=== PATIENT | female | born 1950 | race Caucasian/White ===

== ENCOUNTER 2016-12-10 14:35 | Observation (INO) | payer OTHER, SELFPAY ==
[~2016-12-10] VITALS: Ht 160 cm; Wt 97.5 kg
--- NOTE | ~2016-12-10 | ECH ---
Transthoracic Echocardiography Report (TTE) Demographics Patient Name DEONTE KIM Date of Study 12/11/2016 Patient Number [id number] Visit Number [id number] Date of 1950 Room Number 422 Accession Number [id number] Gender Female Age 66 year(s) Referring Birdie [employer] Courtesy Clerk Cordelia Dunham [facility] Physician Marty Perea MD Physician Interpreting Marty Perea [employer] Machine Operator Physician MD Supervising Ordering Physician MD CICI Flor/SHANI Meier Nurse Stress [employer] Pow[employer] Mixer Conclusions Summary Technically fair exam. The estimated left ventricular ejection fraction is 60-65%. Mild to moderate concentric left ventricular hypertrophy. Diastolic assessment reveals Grade I diastolic dysfunction. Mild mitral regurgitation by color Doppler. The ascending aorta appears mildly dilated. The maximum diameter measures 3.8 cm. The aortic root appears mildly dilated. The maximum diameter measures 3.57 cm at the sinus of valsalva. Procedure Type of Study TTE procedure:Echo Complete SF. Procedure Date Date: 12/11/2016 Start: 10:21 AM Technical Quality: Fair due to body habitus. Indications:Syncope and Abnormal ECG. Additional Indications:prolonged QT Appropriate Use Criteria: 9 Height: 63 inches Weight: 216 pounds BSA: 2 m Rhythm: Within normal limits HR: 71 bpm BP: 158/85 mmHg M-Mode/2D Measurements LV Diastolic Dimension: 4.65 cm LV Systolic Dimension: 2.85 cm LV Septum Diastolic: 1.5 cm LV PW Diastolic: 1.52 cm AO Root Dimension: 2.8 cm Cardiac Output: 4.64 l/min LA Dimension: 4.03 cm Cardiac Index: 2.32 l/min*m RV Diastolic Dimension: 3.17 cm LA volume index: 31 ml/m LVOT: 2.25 cm LVOT VTI: 16.43 cm RV Base: 3.67 cm LV Stroke volume: 65.29 ml RV Mid: 3.1 cm LV Stroke volume index: 32.64 ml/m RV Length: 6.8 cm TDI-S': 14 cm/s Doppler Measurements AV Peak Velocity: 1.3 m/s MV Peak E-Wave: 0.86 m/s AV Peak Gradient: 6.76 mmHg MV Peak A-Wave: 1.28 m/s AV Mean Gradient: 3.85 mmHg MV E/A Ratio: 0.67 LVOT Peak Velocity: 0.92 m/s MV P1/2t: 63.8 msec AV Area (Continuity):3.01 cm MV Deceleration Time: 220 msec MV Area (PHT): 3.45 cm PV Peak Velocity: 1 m/s PV Peak Gradient: 3.99 mmHg RA Area: 13.08 cm Findings Left Ventricle The left ventricle is normal in size . Moderate concentric left ventricular hypertrophy. Diastolic assessment reveals Grade I diastolic dysfunction. Right Ventricle Normal right ventricle structure and function. Left Atrium Normal left atrial size. Right Atrium Normal right atrial size. Mitral Valve Mild mitral annular calcification. Mild mitral regurgitation by color Doppler. Aortic Valve The aortic valve is mildly sclerotic. Tricuspid Valve Normal tricuspid valve structure and function. Trivial tricuspid regurgitation by color Doppler. Pulmonic Valve The pulmonic valve is not well visualized. Pericardial Effusion No evidence of pericardial effusion. Miscellaneous The ascending aorta appears mildly dilated. The maximum diameter measures 3.8 cm. The aortic root appears mildly dilated. The maximum diameter measures 3.57 cm at the sinus of valsalva. Pleural Effusion No evidence of pleural effusion. Contractility Score LV regional wall motion:(0-Non visualized 1-Normal 2-Hypokinesis 3-Akinesis 4-Dyskinesis 5-Aneurysm) Signature
--- NOTE | 2016-12-12 13:16 | ER ---
ADMIT: 12/10/2016 RM/LOC: 422 [facility] MR#: [id number] [address] [address] DEONTE KIM [address] [place] [id number] Emergency Room Report SEX: F AGE: 66 : 1950 DATE: 12/10/2016 The patient is a 66-year-old female with past medical history of diabetes, hypertension, kidney disease, and anemia, who was brought to the ER with chief complaint of ground level fall. The patient states she was on the floor and she fell for unknown reason, and she does not know for how long she was on the floor and she did not know if she lost consciousness or not. The patient states recently, she fell many times and the frequency of ground level falls are getting more. The patient denies any chest pain or shortness of breath. The patient states after the incident, she did not walk because ambulance got there and took her to the hospital. On physical examination, the patient had stable vitals, in no obvious distress. Except for some abrasions and erythema on the bridge of the nose and forehead, which per patient was from the previous fall, there are no other signs of trauma. There is no midline tenderness in spine and there are no step-offs. There are no other signs of trauma in the skull and there are no raccoon eyes or hemotympanum or Parada sign. There is no depressed bone fracture. Pupils are 3 mm, reactive to light bilaterally. Neck is soft. Trachea is midline. Bilateral equal breath sounds. Normal S1, S2 without any murmurs or extra sounds. Abdomen is soft. Mucous membranes are slightly dry. The patient is on 120 mg of Lasix 3 times day. Motor and sensory exam is grossly normal. Cerebellar test is moderately slow bilaterally. Cranial nerves are grossly normal. CT of the head did not show any acute bleed or acute changes. The patient was alert and oriented to person, place, and time but was very fatigued and tired. The patient can move all extremities. Further followups x-ray was done, which was noncontributory. White BC was 10.1, with hemoglobin of 11.7, and platelet of 238,000. Sodium was 133 with potassium of 3.9, and glucose of 91. Creatinine was 1.4. CK was elevated to 839. UA was negative. The patient received IV fluids 1 L in the ER. Cardiac enzymes are negative. D-dimer is mildly elevated to 0.66, and EKG showed sinus rhythm with prolonged QT of 590s. The patient had magnesium of 1.5 and received 2 g of magnesium phosphate in the ER. Medicine was consulted and the patient was admitted for syncope, prolonged QT syndrome, ground-level fall, hypoglycemia, rhabdomyolysis development. Shiraz Oconnor MD/ derrek JOB #: [id number] CC: Tom Packer MD, Attending Physician Tom Packer MD, Family Physician
--- NOTE | 2016-12-13 11:04 | HP ---
ADMIT: 12/10/2016 RM/LOC: 422 [facility] MR#: [id number] 2620 [facility] [address] [place] [phone] DEONTE KIM [address] [place] [address] History and Physical SEX: F AGE: 66 : 1950 DATE OF SERVICE: CHIEF COMPLAINT: Recent increased history of falls and syncope. HISTORY OF PRESENT ILLNESS: The patient is unsure why she fell this afternoon. She just states that she lost her bearings and fell to the ground. She is unsure if she lost consciousness or not, but she does think she laid on the floor for at least 20 to 30 minutes until her came home. She did not have any strength to get up off the floor. The patient mentions she fell earlier this week as well, but she is normally able to get back up. She says that for the past year, she feels that she has been falling more often. She cannot really pinpoint any specific symptoms or problems that she is noticing when these episodes occur. She does mention she has had an increasing cough for the past year, but does not know if that is related or not. She mentions that recently her blood sugars have been more out of whack, some up and down. Most recently, her blood sugar was low as 66 a few days ago, but does admit to low blood sugars today. Again, she is not sure if she is feeling dizzy, but she has not had chest pain or palpitations at that time. She denies any tunnel vision or vision changes. She denies any medication changes. She does mention that over the last week, she has been taking amoxicillin for UTI. She says she was seen before, but there are no records in our clinic EMR of this. She also feels lightheaded at times when she stands up quickly, but has not really noticed it specifically when sitting up. She does have occasional chest pain, shortness of breath, but not sure if that is related to these syncopal events. Currently, she does not have any chest pain or shortness of breath. It is easy for her to breathe, although she is on O2 supplement. While in the ER, workup showed a normal glucose of 119. Head CT was normal. She has a slight elevation of white blood cell count at 10.1, and a slight decrease in her hemoglobin at 11.4, PT/INR was in normal range. EKG did show prolonged QT intervals. BMP showed low sodium, low potassium, and slightly elevated creatinine, low albumin and also a low mag at 1.5. CK was elevated at 839, troponin was normal at 0.024. PAST MEDICAL HISTORY: Significant for diabetes, insulin dependent; dysmetabolic syndrome; hypertension; hyperlipidemia; obesity. ALLERGIES: INCLUDE BIAXIN, CEFDINIR, CODEINE, DETROL, NAPROSYN, NEURONTIN, NORVASC, WELL REGLAN AND TYLENOL WITH CODEINE. MEDICATIONS: See medication list. PAST SURGICAL HISTORY: Positive for C-sections. SOCIAL HISTORY: She does not drink, smoke, or use drugs. She is . She is unemployed and has disability because of chronic low back pain and slipped disks. REVIEW OF SYSTEMS: GENERAL: She feels kind of just fatigued, just not right, sick. ADMIT: 12/10/2016 RM/LOC: 422 [facility] MR#: [id number] [address] [address] DEONTE KIM [address] [place] [phone] History and Physical SEX: F AGE: 66 : 1950 HEENT: Denies any vision changes. Denies headaches. She has had some nasal congestion. No sore throat. No ear pain. HEART: Again, she has occasional chest pain and shortness of breath, but she has not really noticed it with these events and then she has not ever noticed any palpitations or change in heart rate. LUNGS: Again, she has had this cough for the past year, but is able to breathe normally. GI: She is constipated, maybe going to the bathroom every couple of days. This does sometimes cause her to wake up in the middle of the night with nausea and vomiting. She has occasional lower abdominal pain, but for the most part, no pain at all. EXTREMITIES: Again, she has this low back pain, but she has also noticed increased swelling in her lower extremities as well. NEURO: Positive for these syncopes and falls. Negative for any seizure-like activity and negative for any like abnormal or unilateral weakness. PHYSICAL EXAMINATION: VITAL SIGNS: Temperature is 98.9, heart rate of 72, respirations of 14, blood pressure is 162/72, 98% on SpO2 nasal cannula. GENERAL: She is in no acute distress. Alert and oriented x3; however, she does take some time to kind of respond in between questions. HEENT: She has normocephalic head. Does have some abrasions from previous falls. Also, has a scar and it is from previous fall this September. Extraocular muscles are intact. Moist mucous membranes. HEART: Regular rate and rhythm. No murmur. LUNGS: Clear to auscultation bilaterally. GI: Soft, obese. There is some distention and some mild low abdominal pain with palpation. Positive bowel sounds with stool as well. EXTREMITIES: Trace edema bilaterally. No mismatch in size between legs and no pain, no redness. ASSESSMENT AND PLAN: This is a 66-year-old female, presents with syncope: 1. Syncope. 2. Hypomagnesia. 3. Hypokalemia. 4. Prolonged QT interval. 5. Elevated CK 86. 6. Constipation. 7. Diabetes, type 2. 8. Hypertension. 9. Metabolic syndrome. 10.Hyperlipidemia. ADMIT: 12/10/2016 RM/LOC: 422 [facility] MR#: [id number] [address] [address] DEONTE KIM [address] [place] [phone] History and Physical SEX: F AGE: 66 : 1950 The ER gave the patient some IV fluids as well as 2 g of magnesium in the ER. We will trend the patient's cardiac enzymes and we will also replace her potassium as well as trending electrolytes. We will give the patient some medications to help her have a bowel movement as well. We will get EKG in the morning. We can consult Cardiology in the morning as well. Diet will be diabetic. Activity is as tolerated. We will go ahead and check glucose before meals and at bedtime. We will check her thyroid tonight. We will get an echo in the morning. The patient did have an elevated D-dimer in the ER, so this is nonconclusive to rule out DVT or PE, so we will get Dopplers of her bilateral extremities tonight as well. We will repeat a chest x-ray in the morning. We will get orthostatic blood pressures, and we will also get a carotid artery ultrasounds bilaterally in the morning as well. Renea Flor MD Resident / Milad Hayden MD / derrek JOB #: [id number] CC: Tom Packer, Attending Physician Tom Packer, Family Physician
[2016-12-15] MEDS ORDERED: LIBRAX CAPSULE1 EACH PO (12:39)
[2016-12-15] MEDS ORDERED: CARVEDILOL25 MG PO (12:39)
[2016-12-15] MEDS ORDERED: PROTONIX40 MG PO (12:39)
[2016-12-15] MEDS ORDERED: LASIX DPS80 MG PO (12:40)
[2016-12-15] MEDS ORDERED: KLOR-CON M2020 ME1 PO (12:40)
[2016-12-15] MEDS ORDERED: CATAPRES0.1 MG PO (12:40)
[2016-12-15] MEDS ORDERED: ULTRAM DPS50 MG PO (12:41)
[2016-12-15] MEDS ORDERED: BENZONATATE200 MG PO (12:41)
[2016-12-15] MEDS ORDERED: OXYBUTYNIN CHLOR5 MG PO (12:41)
[2016-12-15] MEDS ORDERED: CRESTOR40 MG PO (12:41)
[2016-12-15] MEDS ORDERED: WELCHOL625 MG PO (12:41)
[2016-12-15] MEDS ORDERED: LANTUS100 UNITS/ SQ (12:42)
[2016-12-15] MEDS ORDERED: TYLENOL DPS325 MG PO (12:44)
[2016-12-15] MEDS ORDERED: HUMALOG100 UNIT/1 SQ (12:44)
[2016-12-15] MEDS ORDERED: LEVAQUIN DPS500 MG PO (12:44)
[2016-12-15] MEDS ORDERED: COZAAR100 MG PO (12:45)
[2016-12-15] MEDS ORDERED: NOVOLOG100 UNIT/2 SQ (12:45)
[2016-12-15] MEDS ORDERED: COLACE-DPS100 MG PO (12:45)
[2016-12-15] MEDS ORDERED: TEARS NATURAL D15 ML OU (12:45)
[2016-12-15] MEDS ORDERED: MAALOX DPS30 ML PO (12:46)
[2016-12-15] MEDS ORDERED: BIOTENE237 ML PO (12:46)
--- NOTE | 2016-12-20 09:46 | CO ---
ADMIT: 12/10/2016 RM/LOC: 422 [facility] MR#: [id number] [address] [address] DEONTE KIM [address] [place] [address] Consultation SEX: F AGE: 66 : 1950 DATE OF CONSULTATION: 12/13/2016 ATTENDING PHYSICIAN: Tom Packer CONSULTING PHYSICIAN: oY Sutherland MD REASON FOR CONSULTATION: Chronic kidney disease stage 3 and hypertension. HISTORY OF PRESENT ILLNESS: The patient is a 66-year-old female, who has a history of chronic kidney disease stage 3 with a baseline creatinine of 1.4 to 1.6. She presented to the hospital after recurrent falls. She reports that she has been falling frequently at home. She notes that she has spinal stenosis and has weakness in her legs as a consequence. She thinks she loses balance on multiple occasions and has these falls. She denies any loss of consciousness or any dizziness or lightheadedness prior to the falls. Denies any head injury. She checks her blood pressure at home on a regular basis and reports that her blood pressure is generally well controlled. There has been a question about her furosemide dose at home and although we had previously discussed getting her down to 80 mg once a day, she reports she has been taking furosemide 80 mg twice a day. She otherwise denies any urinary complaints. She was recently noted to be hyponatremic as an outpatient. We had instructed her to restrict her fluid intake. Her sodium when she came in was close to normal. At this time, she feels at her baseline and has no complaints. REVIEW OF SYSTEMS: A complete review of systems is negative in detail except as mentioned in history of present illness above. PAST MEDICAL HISTORY: 1. Hypertension. 2. Diabetes mellitus. 3. Metabolic syndrome. 4. Obesity. 5. Dyslipidemia. ALLERGIES: BIAXIN. MEDICATIONS: Reviewed in the chart. It appears her losartan has been held. She is written for Lasix 80 mg once a day at this time. SOCIAL HISTORY: She lives with her . No ongoing tobacco, alcohol, or recreational drug use. FAMILY HISTORY: Brother had chronic kidney disease that required dialysis. Sister has chronic kidney disease too. Reportedly, their chronic kidney disease is secondary to diabetes. PHYSICAL EXAMINATION: VITAL SIGNS: Temperature 97.7 Fahrenheit, pulse 68, blood pressure 183/84, and saturating 97% on room air. ADMIT: 12/10/2016 RM/LOC: 422 [facility] MR#: [id number] [address] [address] DEONTE KIM [address] [place] [address] Consultation SEX: F AGE: 66 : 1950 GENERAL: She is comfortable on recliner. HEENT: Head is nontraumatic and normocephalic. Extraocular movements are intact. No conjunctival pallor. Oral mucosa is moist. NECK: Supple. No JVD. CHEST: Clear to auscultation. CVS: Regular rhythm. S1 and S2. No rubs, murmurs, or gallops. ABDOMEN: Soft, nontender. EXTREMITIES: No edema. SKIN: She has an abrasion on her right elbow. NEUROLOGIC: Alert, awake, and oriented x3. She is able to move all her extremities. LABORATORY DATA: Reviewed. BMP with sodium 139, potassium 3.8, CO2 of 27, creatinine 1.5, magnesium was 2.1. ASSESSMENT/PLAN: 1. Chronic kidney disease stage 3 - kidney function is stable. Continue supportive renal care. 2. Hypertension - blood pressure is elevated. It is unclear how much furosemide she was taking at home. I will have her take furosemide 80 mg twice a day. She reports that this was her home dose of furosemide. I will also resume her losartan 100 mg a day. I will check labs in a.m. to monitor medication toxicity. Thank you for this consultation and allowing me the opportunity to participate in this patient's care. Please do not hesitate to contact me with any questions. Yo Sutherland MD/ derrek JOB #: [id number] CC: Tom Packer, Attending Physician Tom Packer, Family Physician
--- NOTE | 2016-12-23 17:29 | CO ---
ADMIT: 12/10/2016 RM/LOC: 422 [facility] MR#: [id number] [address] [address] TORY KIM [address] [place] [address] Consultation SEX: F AGE: 66 : 1950 DATE OF CONSULTATION: 12/11/2016 ATTENDING PHYSICIAN: Tom Packer CONSULTING PHYSICIAN: Adarsh Ferguson MD REASON FOR EVALUATION: Possible syncope and abnormal EKG with prolonged QT. HISTORY OF PRESENT ILLNESS: Tory is a 66-year-old, diabetic with no prior cardiac history. Apparently, she has had recurrent falls over the past several years but has worsened over the past several months. There is some question whether she is having syncope or falls. She said she sustained her second or third fall this week, which brought her into the emergency room. Her EKG showed nonspecific intraventricular conduction delay with evidence of left ventricular hypertrophy and her QT was mildly prolonged. She did have some hypomagnesemia or low magnesium and that was replaced. Her EKG shows improved QT today and she has not had any arrhythmias. She denies any angina, such as chest pain, orthopnea, PND, lower extremity swelling, palpitations, lightheadedness. No history rheumatic fever or pericarditis. She does have chronic back pain and has some pain in her legs when she walks. Her cardiac enzymes have been negative. Carotid Dopplers were pending. ALLERGIES: TO CLARITHROMYCIN. CURRENT MEDICATIONS: Include: 1. Potassium 100 daily. 2. Librax 2.5 q.i.d. 3. Coreg 37.5 daily. 4. Pantoprazole 40 daily. 5. Clonidine 0.1 for systolic blood pressure greater than 160. 6. Klor-Con 20 b.i.d. 7. Lasix 120 t.i.d. 8. Tramadol 50 b.i.d. and p.r.n. 9. Oxybutynin 5 mg b.i.d. 10.Benzonatate 100 mg t.i.d. p.r.n. 11.Welchol 625 q.i.d. 12.Crestor 40 at bedtime. 13.Lantus 30 units at bedtime and sliding scale. ILLNESSES: Include insulin-dependent diabetes, metabolic syndrome, hypertension, obesity, and hyperlipidemia. FAMILY HISTORY: She says her father had an IL at age 49. Her mother was elderly when she developed heart failure. She has a maternal aunt who had a stroke and there is family history of diabetes. She denies significant family history of cancer. PAST SURGERY HISTORY: Includes . ADMIT: 12/10/2016 RM/LOC: 422 [facility] MR#: [id number] [address] [address] TORY KIM [address] [place] [phone] Consultation SEX: F AGE: 66 : 1950 SOCIAL HISTORY: She does not exercise routinely. She is disabled from back problems. She says she has never smoked. She does not drink alcohol or use illicit drug use. She has been for 42 years, they do not have children. REVIEW OF SYSTEMS: GENERAL: She tires easily and that has been going on for 4 years. She has had recent weight gain of 10 pounds over the past 2 months. EYES: Denies double vision, blurred vision, cataracts, or glaucoma. ENT: Positive for chronic sinus throat problems and hearing loss. RESPIRATORY: Positive for waking more than once at night, feeling tired in the morning. GASTROINTESTINAL: Positive for heartburn and difficulty swallowing and gallbladder problems. GENITOURINARY: Positive for acute kidney failure for which she required dialysis about 4 years ago but has not been on dialysis since. MUSCULOSKELETAL: Positive arthritis and muscle joint pains. ENDOCRINE: Hypothyroidism. HEMATOLOGIC: Denies history of anemia, easy bruising, or cancer. NEUROLOGIC: Denies chronic headaches, dizziness, syncope, stroke, seizures or numbness or tingling. PSYCHIATRIC: Denies history of mental illness or feelings of depression. PHYSICAL EXAMINATION: VITAL SIGNS: Blood pressure is 158/85, pulse is 70 and regular, respirations 14, she is afebrile, O2 sats are 97% on room air. SKIN: Leach, warm and dry. EYES: Sclerae clear. No xanthelasmas. ENT: There is abnormal hair growth over her face. Otherwise, oral mucosa is pink and moist. No jugular venous distention or carotid bruits. HEART: Regular rate and rhythm. Normal S1, S2. No murmurs, rubs or gallops. I do not hear any gallops. CHEST: Mild kyphosis. Otherwise, respirations are even and unlabored. Lungs are clear to auscultation. ABDOMEN: Obese. Otherwise, soft and nontender. MUSCULOSKELETAL: Gait is normal. EXTREMITIES: Peripheral pulses palpable. No clubbing, cyanosis or edema. PSYCHIATRIC: She seems slow to respond and I questioned some periods of slight confusion. LABORATORY DATA: A 12-lead EKG shows left ventricular hypertrophy with an underlying nonspecific intraventricular conduction delay. IMPRESSION: 1. Recurrent falls. 2. Questionable syncope. 3. Insulin-dependent diabetes. 4. Obesity. ADMIT: 12/10/2016 RM/LOC: 422 [facility] MR#: [id number] [address] [address] TORY KIM [address] [place] [address] Consultation SEX: F AGE: 66 : 1950 5. Hypertension. 6. Hyperlipidemia. RECOMMENDATIONS: Unfortunately, she would have multiple potential causes of the syncope or her falls with her chronic back pain, autonomic dysfunction, with her diabetes, her obesity, and her back limitations. I do not think that she has long QT syndrome or ventricular arrhythmias causing the symptoms. She clearly has left ventricular hypertrophy on her EKG. We will do an EKG to assess her LV function and monitor her on telemetry. She will need outpatient telemetry to rule out significant arrhythmias. It is very difficult for me to tell if she is falling or having true syncope. I also think she would try benefit from a Physical Therapy evaluation. Adarsh Ferguson MD/ derrek JOB #: [id number] CC: Tom Packer, Attending Physician Tom Packer, Family Physician
--- NOTE | 2017-01-16 12:53 | DS ---
ADMIT: 12/10/2016 RM/LOC: 422 [facility] MR#: [id number] [address] [id number] DEONTE KIM [address] [place] [address] General Discharge Summary SEX: F AGE: 66 : 1950 ADMISSION DATE: 12/10/2016 DISCHARGE DATE: 12/14/2016 FINAL DIAGNOSES: 1. Syncope and collapse. 2. Type 2 diabetes mellitus with diabetic chronic kidney disease. 3. Diabetic nephropathy. 4. Diabetic neuropathy. 5. Chronic kidney disease, stage III. 6. Valvular heart disease with mitral valve regurgitation. 7. Chronic back pain. 8. Lumbar spinal stenosis. 9. Hypomagnesemia. 10.Hypokalemia. 11.Long QT syndrome. 12.Metabolic syndrome. 13.Hyperlipidemia. 14.Repeated falls. 15.Orthostatic hypotension. COMPLICATIONS: None. OPERATIONS: None. CLINICAL HISTORY: The patient is a 66-year-old, disabled white female who was admitted to the hospital for observation and evaluation after having multiple falls in the week prior to admission and after having what appeared to be a syncopal episode. The patient had been brought to the ER, evaluated, and then subsequently admitted because of her unexplained syncope. For further details of her clinical history as well as past medical history and pertinent findings on physical exam, please see dictated history and physical. Please also see dictated Cardiology consultation from Dr. Adarsh Ferguson, dictated Nephrology consult from Dr. Sutherland. She does follow with Dr. Sutherland on a chronic basis for her chronic kidney disease. LABORATORY AND X-RAY SUMMARY FROM THIS ADMISSION: For complete details of lab, please see cumulative laboratory summary included in the chart. Brief synopsis of lab; her initial CBC showed a white count of 10,100. Her hemoglobin on admission was 11.4, hematocrit 33.7. Serial CBC showed no real significant change. At discharge, white count was 6500, hemoglobin 10.4, hematocrit 30.9. Her protime on admission was normal at 12 with an INR of 1.15. D-dimer was slightly elevated at 0.66. Urinalysis on admission was clear. Chemistry studies were monitored serially. On admission, her sodium was 137, potassium was 3.2. On admission, her sodium was 133, potassium 3.4, BUN was 23 with a creatinine of 1.4. Blood sugar was 91. LFTs were normal. Her renal function remained stable. On her second hospital day, BUN was 22 with a creatinine of 1.4. Potassium dropped to 3.2 on her second hospital day. At discharge, her sodium was 139, potassium 3.2, BUN was 15 with a creatinine of 1.5. Fingerstick blood sugars were monitored q.i.d. and ranged ADMIT: 12/10/2016 RM/LOC: 422 [facility] MR#: [id number] [address] [id number] DEONTE KIM [address] [place] [address] General Discharge Summary SEX: F AGE: 66 : 1950 from a low of 75 to a high of 239 during this hospital stay. For the most part, her blood sugars were well controlled. X-ray studies included a normal CT of her head done in the ER. A CT of the chest was obtained because of her elevated D-dimer. She had no pulmonary embolus. She did have some mild changes of pulmonary edema. MRI of the lumbar spine showed severe acquired spinal stenosis at L3-L4. Serial chest x-ray showed some patchy interstitial infiltrates consistent with pulmonary edema. A carotid Doppler study showed no significant carotid occlusive disease. Echocardiogram showed an EF of 60% to 65%, moderate left ventricular hypertrophy with grade 1 diastolic dysfunction, mild mitral regurgitation, no other significant valvulopathy. Her serial EKGs showed normal sinus rhythm with first degree AV block, changes of LVH, some nonspecific ST-T wave changes. Serial EKG showed no change. HOSPITAL COURSE: The patient was admitted because of her unexplained syncopal episode. Cardiology and Nephrology consults were obtained. It was felt after reviewing her medications that she had several of her medications that she was confused on and was taking inappropriately high doses of her diuretic at times. There was also a question of whether she was confused with some of her blood pressure medications. Cardiology did not feel that she had any significant rhythm problem or other cardiac explanation for her syncope. It was ultimately felt that it was probably orthostatic in nature. She continued to have a great deal of back pain throughout the hospitalization, so we did MRI her lumbar spine which showed significant disk disease and acquired lumbar spinal stenosis. She was felt to have a possible mild pneumonia or just interstitial edema. We did cover her with antibiotics treating for any respiratory infection. She slowly improved over the course of the hospital stay, had no further syncope, and was tolerating physical activity. She was ultimately dismissed to home on 12/14/2016 with planned followup in our office in 4 to 5 days. She is also going to do some ongoing PT/OT and speech therapy [place] as well. DISCHARGE MEDICATIONS: At dismissal, her medications were to include: 1. Colace 100 mg b.i.d. 2. Coreg 25 mg b.i.d. 3. Cozaar 100 mg daily. 4. Crestor 40 mg at bedtime. 5. Ditropan 5 mg b.i.d. 6. Lasix 80 mg b.i.d. 7. Protonix 40 mg daily. 8. Ultram 50 mg b.i.d. 9. Welchol 625 mg t.i.d. 10.Natural Tears 2 drops both eyes q.i.d. 11.Lantus 25 units at bedtime. 12.NovoLog 10 units plus sliding scale prior to each meal. 13.Catapres 0.1 mg one every 4 hours p.r.n. systolic blood pressure greater than 170. 14.Maalox p.r.n. indigestion. ADMIT: 12/10/2016 RM/LOC: 422 [facility] MR#: [id number] [facility] [address] [place] [id number] DEONTE KIM [address] [place] [address] General Discharge Summary SEX: F AGE: 66 : 1950 15.Biotene mouth rinse twice daily. 16.Surfak 240 mg b.i.d. p.r.n. 17.Tessalon Perles 200 mg every 6 hours p.r.n. cough. 18.Tylenol p.r.n. minor discomfort. 19.Ultram 50 mg one every 6 hours p.r.n. severe back pain. 20.Potassium 20 mEq one daily. 21.Levaquin 500 mg one daily for 7 days. Her med list was reviewed in detail with her at the time of discharge. FOLLOWUP: She will follow up in our office in 4 to 5 days. Labs to be done then to include CBC and BMP. CONDITION AT DISCHARGE: Stable and improved. PROGNOSIS: [place] to be reasonably good. Tom Packer MD/ derrek JOB #: [id number] CC: Tom Packer MD, Attending Physician Tom Packer MD, Family Physician
== END 2016-12-14 15:00 | disposition home or self-care (01) ==
LOC: ER 14:35 → 4PCU 18:00
PROVIDERS: ADMIT Family Medicine
DX: R55 Syncope and collapse (principal); E11.22 Type 2 diabetes mellitus with diabetic chronic kidney disease; I12.9 Hypertensive chronic kidney disease with stage 1 through stage 4 chronic kidney disease, or unspecified chronic kidney disease; N18.3 Chronic kidney disease, stage 3 (moderate); E11.40 Type 2 diabetes mellitus with diabetic neuropathy, unspecified; I34.0 Nonrheumatic mitral (valve) insufficiency; M48.06 Spinal stenosis, lumbar region; E83.42 Hypomagnesemia; E87.6 Hypokalemia; I45.81 Long QT syndrome; E88.81 Metabolic syndrome and other insulin resistance; E78.5 Hyperlipidemia, unspecified; R29.6 Repeated falls; Z88.1 Allergy status to other antibiotic agents; Z88.5 Allergy status to narcotic agent; Z88.8 Allergy status to other drugs, medicaments and biological substances; Z79.899 Other long term (current) drug therapy; Z79.4 Long term (current) use of insulin; Z98.890 Other specified postprocedural states